=== PATIENT | female | born 1980 | race Caucasian/White ===

== ENCOUNTER 2021-10-09 14:09 | Outpatient (CLI) | payer MEDICAID | END 2021-10-09 14:10 | disposition home or self-care (01) | LOC: CSHRAD 14:09 | PROVIDERS: ATTEND Family Medicine | DX: R09.89 Other specified symptoms and signs involving the circulatory and respiratory systems (principal); R91.8 Other nonspecific abnormal finding of lung field | CPT/HCPCS: 71046 ==